=== PATIENT | female | born 1965 | race Two or more races ===

== ENCOUNTER 2019-04-07 21:16 | Emergency (ER) | payer OTHER ==
[2019-04-07 21:28] VITALS: BP 114/79; PULSE 90; TEMP 99.3; BMI 32.8
[2019-04-07] MEDS ORDERED: CYCLOBENZAPRINE HCL 10 MG TABLET (FP) PO ONE (21:52)
[2019-04-07] MEDS ORDERED: CYCLOBENZAPRINE HCL 10 MG TABLET (FP) ONE (22:02)
--- NOTE | 2019-04-07 22:16 | PDOC ---
Documentation entered by Sarah Mina SCRIBE, acting as scribe for Cynthia Jain MD. Cynthia Jain MD: This documentation has been prepared by the Keeley self Brenda, SCRIBE, under my direction and personally reviewed by me in its entirety. I confirm that the documentation accurately reflects all work , treatment, procedures, and medical decision making performed by me. History of Present Illness - General Chief Complaint: Cold Symptoms Stated Complaint: COLD SYMPTOMS/BODY ACHES History Source: Patient Exam Limitations: No Limitations - History of Present Illness Initial Comments: 04/07/19 21:53 The patient is a 53 year old female, with a significant PMH of HTN and blood clots who presents to the emergency department with 4 days of middle and upper back pain, which radiates down her legs. Patient reports being unable to sleep due to the pain. Patient also endorses upper respiratory infection symptoms, which is being treated for by PMD with tylenol and augmentin. The patient denies chest pain, shortness of breath, headache and dizziness. Denies nausea, vomiting, diarrhea and constipation. Denies dysuria, frequency, urgency and hematuria. Allergies: NKA Social history: Works at a [employer] PCP: Lynn Downs 04/07/19 22:05 Assessment and plan: This is a 53-year-old female who comes in complaining of low back pain times approximately 5 days. Patient has a upper respiratory tract infection for which she is being treated and now comes in with low back pain. Patient's pain does radiate to the upper legs bilateral and is consistent with sciatica. Patient's neurovascular is intact. Patient given Toradol and Flexeril and a prescription for naproxen and Flexeril was sent to her pharmacy. Patient was discharged we will follow-up with her primary care doctor Past History - Past Medical History Allergies/Adverse Reactions: Allergies Allergy/AdvReac Type Severity Reaction Status Date / Time No Known Allergies Allergy Verified 05/22/15 12:18 Home Medications: Ambulatory Orders Amlodipine Besylate/Valsartan [Amlodipine-Valsartan 10-160 mg] 1 each PO DAILY 05/22/15 Aspirin [ASA -] 81 mg PO DAILY 05/22/15 Cholecalciferol (Vitamin D3) [Vitamin D3] 2,000 unit PO DAILY 05/22/15 Hydrochlorothiazide [Hctz -] 12.5 mg PO DAILY 05/22/15 Acetaminophen [Pain Relief] 650 mg PO DAILY 04/07/19 Amoxicillin/Potassium Clav [Amox-Clav 875-125 mg Tablet] 1 each PO BID 04/07/19 Cyclobenzaprine HCl [Flexeril 10 mg] 10 mg PO BID PRN #20 tablet 04/07/19 Naproxen 500 mg PO BID #28 tablet. 04/07/19 Cardiac Disorders: Yes HTN: Yes - Immunization History Immunization Up to Date: Yes - Psycho Social/Smoking Cessation Hx Smoking Status: No Smoking History: Never smoked Number of Cigarettes Smoked Daily: 0 Hx Alcohol Use: No Drug/Substance Use Hx: No Substance Use Type: None Review of Systems - Review of Systems Able to Perform ROS?: Yes Comments:: 04/07/19 21:56 General: no weakness, no weight loss HEENT: No change in vision. . No ear pain CardioVascular: No chest pain or shortness of breath Respiratory:No cough, or wheezing. Gastrointestinal: no nausea, vomiting, diarrhea or constipation, No rectal bleeding Genitourinary: No dysuria, hematuria, or frequency Musculoskeletal: (+) Back pain. No joint or muscle pain. Neurologic: No headache, vertigo, dizziness or loss of consciousness Psychiatric: nor depression Skin: No rashes or easy bruising Endocrine: no increased thirst or abnormal weight change Allergic: no skin or latex allergy All other systems reviewed and normal *Physical Exam - Vital Signs Last Vital Signs Temp Pulse Resp BP Pulse Ox 99.3 F 90 18 114/79 97 04/07/19 21:21 04/07/19 21:21 04/07/19 21:21 04/07/19 21:21 04/07/19 21:21 - Physical Exam 04/07/19 21:55 GENERAL: The patient is awake, alert, and fully oriented, in no acute distress. HEAD: Normal with no signs of trauma. EYES: Pupils equal, round and reactive to light, extraocular movements intact, sclera anicteric, conjunctiva clear. BACK: (+)Paraspinal Tenderness and spasm of lower lumbar spine. (+) Negative straight leg raising. No spinal tenderness on thoracolumbar sacral spine EXTREMITIES: Normal range of motion, no edema. NEUROLOGICAL: Normal speech, normal gait. PSYCH: Normal mood, normal affect. SKIN: Warm, Dry, normal turgor, no rashes or lesions noted. ED Treatment Course - Medications Given in the ED: ED Medications Discontinued Medications Generic Name Dose Route Start Last Admin Trade Name Sol PRN Reason Stop Dose Admin Cyclobenzaprine HCl 10 mg 04/07/19 21:52 04/07/19 22:03 Flexeril - PO 04/07/19 21:53 10 mg ONCE ONE Administration Discharge - Discharge Information Problems reviewed: Yes Clinical Impression/Diagnosis: Low back pain Disposition: HOME - Admission No - Additional Discharge Information Prescriptions: Cyclobenzaprine HCl [Flexeril 10 mg] 10 mg PO BID PRN #20 tablet PRN Reason: back spasm Naproxen 500 mg PO BID #28 tablet.dr - Follow up/Referral Referrals: Lynn Downs MD [Primary Care Provider] - - Patient Discharge Instructions Additional Instructions: Take Flexeril 1 tablet twice a day for muscle spasm and pain in your back. The Flexeril make you drowsy so do not take it if you have to go to work or drive.. For the pain take naproxen 1 tablet twice a day with food do not take on an empty stomach. Return to the emergency department immediately with ANY new, persistent or worsening symptoms. Continue any medications as previously prescribed by your physician. You should follow up with your primary doctor as soon as possible regarding today's emergency department visit. . Please make sure your doctor reviews the results of your emergency evaluation. Thank you for coming to the Emergency Department today for your care. It was a pleasure to see you today. Please note that your evaluation is INCOMPLETE until you follow-up with your doctor. - Post Discharge Activity
[2019-04-07] MEDS ORDERED: KETOROLAC TROMETHAMINE 60 MG/2 ML VIAL IM ONE (22:18)
[2019-04-07] MEDS ORDERED: KETOROLAC TROMETHAMINE 60 MG/2 ML VIAL ONE (22:22)
== END 2019-04-07 22:27 | disposition home or self-care (01) ==
LOC: FER 21:16
PROC: 3E0233Z Introduction of Anti-inflammatory into Muscle, Percutaneous Approach (ICD-10-PCS; principal; 2019-04-07)
DX: M54.5 Low back pain (principal); I10 Essential (primary) hypertension; Z79.82 Long term (current) use of aspirin
CPT/HCPCS: 99281-25

== ENCOUNTER 2021-09-26 12:27 | Emergency (ER) | payer OTHER ==
[2021-09-26 12:39] VITALS: BP 124/69; PULSE 87; TEMP 101.1; BMI 27.3
[2021-09-26] MEDS ORDERED: BEBTELOVIMAB (EUA) 175 MG/2 ML VIAL IVPUSH ONE (13:37)
[2021-09-26] MEDS ORDERED: ACETAMINOPHEN 500 MG TABLET (FP) PO ONE (13:38)
[2021-09-26] MEDS ORDERED: ACETAMINOPHEN 500 MG TABLET (FP) ONE (14:29)
== END 2021-09-26 16:55 | disposition home or self-care (01) ==
LOC: JCOVINFU 12:27 → JER 12:27
PROC: 3E033GC Introduction of Other Therapeutic Substance into Peripheral Vein, Percutaneous Approach (ICD-10-PCS; principal; 2021-09-26)
DX: U07.1 COVID-19 (principal)
CPT/HCPCS: 99284-25; Q0222

== ENCOUNTER 2022-06-30 21:10 | Emergency (ER) | payer OTHER ==
[2022-06-30] MEDS ORDERED: LIDOCAINE 5% TOPICAL PATCH TP ONE (21:18)
[2022-06-30] MEDS ORDERED: diazePAM 5 MG TABLET PO ONE (21:18)
[2022-06-30] MEDS ORDERED: KETOROLAC TROMETHAMINE 60 MG/2 ML VIAL IM ONE (21:24)
[2022-06-30] MEDS ORDERED: diazePAM 5 MG TABLET ONE (21:28)
[2022-06-30] MEDS ORDERED: KETOROLAC TROMETHAMINE 30 MG/1 ML VIAL ONE (21:28)
[2022-06-30] MEDS ORDERED: LIDOCAINE 5% TOPICAL PATCH ONE (21:29)
[2022-06-30 21:36] VITALS: BP 150/79; PULSE 67; RESP 16; TEMP 98; BMI 28.1
[2022-06-30] MEDS ORDERED: LIDOCAINE PATCH REMOVAL MC SCH (22:00)
== END 2022-06-30 21:44 | disposition home or self-care (01) ==
LOC: FER 21:10
PROC: 3E0233Z Introduction of Anti-inflammatory into Muscle, Percutaneous Approach (ICD-10-PCS; principal; 2022-06-30)
DX: M54.50 Low back pain, unspecified (principal); X50.0XXA Overexertion from strenuous movement or load, initial encounter; Y92.511 Restaurant or cafe as the place of occurrence of the external cause; Y99.0 Civilian activity done for income or pay
CPT/HCPCS: 99284-25

== ENCOUNTER 2022-07-02 22:28 | Emergency (ER) | payer OTHER ==
[2022-07-02 22:40] VITALS: BP 150/66; PULSE 75; RESP 16; TEMP 98; BMI 31.3
[2022-07-02] MEDS ORDERED: KETOROLAC TROMETHAMINE 30 MG/1 ML VIAL IVPUSH ONE (22:41)
[2022-07-02] MEDS ORDERED: morphine CARPU-JECT 2 MG/1 ML DISP.SYRIN IVPUSH ONE ×2 (22:41→22:44)
[2022-07-02] MEDS ORDERED: ONDANSETRON 4 MG/2 ML VIAL IVPUSH ONE (22:41)
[2022-07-02] MEDS ORDERED: SODIUM CHLORIDE 1,000 ML IV ONE (22:41)
[2022-07-02] MEDS ORDERED: ONDANSETRON 4 MG/2 ML VIAL ONE (23:04)
[2022-07-02] MEDS ORDERED: morphine SULFATE 4 MG/ML VIAL ONE (23:04)
[2022-07-02] MEDS ORDERED: KETOROLAC TROMETHAMINE 30 MG/1 ML VIAL ONE (23:05)
[2022-07-02 23:10] LABS: HEMATOCRIT 39.1 % (32.4-45.2); HEMOGLOBIN 13.4 G/dL (10.7-15.3); MCHC 34.3 g/dl (32.0-36.0); MEAN CELL VOLUME 90.3 fl (80-96); MEAN PLT VOLUME 9.4 fl (7.5-11.1); PLATELET COUNT 247.7 10^3/uL (134-434); RBC 4.33 10^6/uL (3.60-5.2); RDW 13.2 % (11.6-15.6); WHITE BLOOD COUNT 7.8 10^3/uL (4.0-10.8)
[2022-07-02 23:23] LABS: URIC ACID CRYSTALS 1+ /hpf (NONE SEEN)
[2022-07-02 23:25] LABS: ALBUMIN 4.4 g/dl (3.4-5.0); BILIRUBIN,TOTAL 0.6 mg/dl (0.2-1); CALCIUM 9.6 mg/dl (8.5-10); CREATININE 0.7 mg/dl (0.55-1.3); TOT PROT 7.3 g/dl (6.4-8.2)
== END 2022-07-03 01:03 | disposition home or self-care (01) ==
LOC: FER 22:28
PROC: 3E0333Z Introduction of Anti-inflammatory into Peripheral Vein, Percutaneous Approach (ICD-10-PCS; principal; 2022-07-02)
PROC: 3E033GC Introduction of Other Therapeutic Substance into Peripheral Vein, Percutaneous Approach (ICD-10-PCS; 2022-07-02)
PROC: 3E033GC Introduction of Other Therapeutic Substance into Peripheral Vein, Percutaneous Approach (ICD-10-PCS; 2022-07-02)
PROC: 3E0337Z Introduction of Electrolytic and Water Balance Substance into Peripheral Vein, Percutaneous Approach (ICD-10-PCS; 2022-07-02)
DX: M54.50 Low back pain, unspecified (principal); X50.3XXA Overexertion from repetitive movements, initial encounter; Y92.511 Restaurant or cafe as the place of occurrence of the external cause; Y99.0 Civilian activity done for income or pay
CPT/HCPCS: 36415; 74176-TC; 80053; 81003; 81015; 85027; 87086; 99284-25

== ENCOUNTER 2022-07-18 00:49 | Emergency (ER) | payer OTHER ==
[2022-07-18 00:55] VITALS: BP 129/70; PULSE 71; RESP 17; TEMP 97.5; BMI 33.3
[2022-07-18] MEDS ORDERED: KETOROLAC TROMETHAMINE 60 MG/2 ML VIAL IM ONE (01:07)
[2022-07-18] MEDS ORDERED: KETOROLAC TROMETHAMINE 60 MG/2 ML VIAL ONE (01:10)
== END 2022-07-18 01:23 | disposition home or self-care (01) ==
LOC: FER 00:49
PROC: 3E023GC Introduction of Other Therapeutic Substance into Muscle, Percutaneous Approach (ICD-10-PCS; principal; 2022-07-18)
DX: M54.32 Sciatica, left side (principal)
CPT/HCPCS: 99284-25